=== PATIENT | male | born 1970 | race Caucasian/White ===

== ENCOUNTER 2025-02-10 13:20 | Emergency (ER) | payer OTHER, SELFPAY ==
--- NOTE | ~2025-02-10 | XR_ITS ---
EXAMINATION: XR ankle RT min 3V DATE: 02/10/2025 15:03 INDICATION: Right ankle pain post injury TECHNIQUE: Anteroposterior, oblique, mortise, and lateral views of the right ankle were obtained. COMPARISON: None. FINDINGS: Bone alignment is normal. No fracture. Joint spaces are normal. Small Achilles calcaneal spur. Soft t issues are unremarkable with no evident ankle joint effusion. IMPRESSION: 1. Small Achilles calcaneal spur. No other osseous abnormality. Reviewed, dictated and finalized at location B.
[2025-02-10 13:33] VITALS: BP 217/107; PULSE 95; RESP 16; TEMP 36.3; O2SAT 96
--- NOTE | 2025-02-10 14:24 | ED.LOWEXIN ---
HPI - Extremity Injury (Lower) General Chief Complaint: Extremity Injury, Lower Stated Complaint: rolled right ankle Time Seen by Provider: 02/10/25 14:24 Source: patient, RN notes reviewed and old records reviewed Mode of arrival: ambulatory Limitations: no limitations History of Present Illness HPI Narrative: 54-year-old male presents to the [facility] with pain, swelling after rolling his ankle yesterday. Pain to the right ankle, lateral and anterior. No treatment prior to arrive Onset (ago): day(s) (1) Related Data Home Medications ?Medication ?Instructions ?Recorded ?Confirmed ?Last Taken ?Type No Home Medications 02/10/25 02/10/25 Unknown History Allergies Allergy/AdvReac Type Severity Reaction Status Date / Time No Known Allergies Allergy Verified 02/10/25 13:31 Review of Systems Review of Systems: All systems reviewed & are unremarkable except as noted in HPI and below Constitutional: Constitutional: Reports no additional constitutional complaints ENT: Reports system reviewed and no additional complaints, except as documented Cardiovascular: Cardiovascular: Reports no additional cardiovascular complaints, Denies chest pain and Denies dyspnea Respiratory: Respiratory: Reports no additional respiratory complaints, Denies chest congestion, Denies cough and Denies dyspnea Musculoskeletal: Musculoskeletal: Reports as per HPI, Reports arthralgias and Reports joint swelling Integumentary/Breasts: Skin/Breast: Reports system reviewed and no additional complaints, except as docu PMFSH Comments At the time of my signature, I reviewed and agree with the nursing past medical, surgical, social, and family history. There is no relevant family history pertinent to the patient complaint. Exam Const: General: cooperative, healthy appearing, comfortable, no acute distress, well developed, alert and well nourished Nutritional Appearance: well nourished Orientation/consciousness: patient oriented x3 Limitations: no limitations HENMT: Head: normal to inspection Eyes: General: appearance normal, both eyes and all related structures Alignment and Position: alignment normal Neck: Neck: normal visual inspection, full ROM, no lymphadenopathy and no meningeal signs Chest: Chest palpation & inspection: normal inspection of the chest Resp: Effort & Inspection: normal respiratory effort and able to speak in complete sentences Auscultation: clear to auscultation bilaterally, no crackles, no rales, no rhonchi and no wheezes Cardio: Rate: regular rate Skin: General skin exam: normal color and no rashes or lesions noted Neuro: General: patient oriented x3, gait normal, moves all extremities and no meningeal signs Cognition (Neuro): normal cognition Speech: normal speech Gait exam (Neuro): Normal gait present Extrem: General: normal to inspection, full ROM, capillary refill normal and normal gait Right lower extremity: ankle Details: tenderness, swelling and normal ROM; no unusual warmth, no abrasions, no lacerations and no ecchymosis Psych: Appearance: grossly normal and well kempt Mental Status: mental status grossly normal Speech and movement: Normal speech and movement present and Clear speech present Affect: normal affect Attitude: cooperative Course Course Level of Care: Express Care Visit Vital Signs Vital signs: Vital Signs Temperature 97.4 F L 02/10/25 13:33 Pulse Rate 95 02/10/25 13:33 Respiratory Rate 16 02/10/25 13:33 Blood Pressure 217/107 H 02/10/25 13:33 Pulse Oximetry 96 02/10/25 13:33 Oxygen Delivery Room Air 02/10/25 13:33 Temperature 97.4 F L 02/10/25 13:33 Pulse Rate 95 02/10/25 13:33 Respiratory Rate 16 02/10/25 13:33 Blood Pressure 190/100 H 02/10/25 14:36 Pulse Oximetry 96 02/10/25 13:33 Oxygen Delivery Room Air 02/10/25 13:33 Reviewed MDM - Extremity Injury (Lower) MDM Narrative Medical decision making narrative: patient sitting comfortably in exam room. Nontoxic, vitals stable. Patient in no acute distress. Patient presents for right ankle pain, x-rays negative. Also discussed with patient that his blood pressure is extremely elevated, discussed transfer the ER for evaluation. Patient reports that he does have an appointment with a primary care that his made. Repeated a manual blood pressure, 190/100. Discussed with patient signs and symptoms of elevated blood pressure. Patient is denying any headaches, blurry vision, change in vision. Denies any chest pain or shortness of breath at this time. Discussed the risks of untreated blood pressure with this patient. Discharge instructions reviewed with patient, as well as provided in writing per nursing staff. The instructions also include specific and strict return/GO TO THE ER as well as f/u information. All questions have been answered, and the patient deny any further questions with discharge and discharge plan. Some parts of this dictation were generated by voice recognition software and may contain typographical and/or grammatical inaccuracies. Differential Diagnosis Differential diagnosis: Likely ankle sprain and strain and ankle fracture Imaging Data Radiologist's impression: EXAMINATION: XR ankle RT min 3V DATE: 02/10/2025 15:03 INDICATION: Right ankle pain post injury TECHNIQUE: Anteroposterior, oblique, mortise, and lateral views of the right ankle were obtained. COMPARISON: None. FINDINGS: Bone alignment is normal. No fracture. Joint spaces are normal. Small Achilles calcaneal spur. Soft tissues are unremarkable with no evident ankle joint effusion. IMPRESSION: 1. Small Achilles calcaneal spur. No other osseous abnormality. Critical Care Time Critical Care Time Critical Care Time: No Discharge Plan Discharge Clinical Impression: Ankle sprain and strain Patient Disposition: Home, Self-Care Condition: Stable Instructions: Antibiotic Form, Ankle Sprain (ED), Hypertension (ED) Additional Instructions: today your 1st blood pressure was 217/107. Your 2nd blood pressure reading manually was 190/100. please follow-up with your primary care provider for further evaluation, testing and treatment. untreated high blood pressure can lead to some serious health issues such as strokes, heart attack, kidney failure, Erectile dysfunction Your Xray did not show a fracture. Wear good supportive shoes at all times. Ice should be applied to help reduce swelling. It can be used for 20 to 30 minutes, every 2-3 hours while awake. Do not apply ice directly to your skin. ankle braces or brennon-wraps will help support your injured ankle. You can alternate ibuprofen 600mg and Tylenol 650mg every 4 hours as needed for pain Please schedule a follow-up visit with your personal physician for further evaluation and treatment within 2 weeks especially if symptoms persist. For new or worsening symptoms go directly to the emergency room Patient Language: Tajik Prescriptions: No Action No Home Medications Follow-up/Referrals: Harms,Carlos Alberto Medrano M.D. [Primary Care Provider] - [facility] pressure [facility] ) Time of Disposition: 15:11
--- OUTSIDE RECORDS SUMMARY | 2025-02-10 14:35 | XMS_ITS | Referral Summary ---
Author Organization [facility] Address [address] [place] [address] Care Team Providers Care Central Service Tech Name Role Phone Can Aponte MD Primary Care Provider [phone] Allergies No known active allergies Medications pantoprazole DR (PROTONIX) 40 mg EC tabletIndication s:Treatment of Non-Bleeding Gastric Disorder Take 1 tablet (40 mg total) by mouth daily 90 tablet 1 08/16/2021 Active lisinopriL (PRINIVIL,ZESTRI L) 20 mg tablet Take 1 tablet (20 mg total) by mouth daily 90 tablet 1 08/16/2021 Active Active Problems Problem Noted Date Diagnosed Date Hypertension, essential 08/16/2021 Assessment & Plan (11/02/2021 5:45 PM TELECOMMUNICATIONS SWITCH TECHNICIAN): Not well controlled, has not been on medications for multiple years Based upon elevation, will start lisinopril 20 mg daily Actinic keratosis of left cheek 08/16/2021 Assessment & Plan (11/02/2021 5:46 PM TELECOMMUNICATIONS SWITCH TECHNICIAN): Referral to dermatology for further evaluation treatment Gastritis 08/16/2021 Assessment & Plan (11/02/2021 5:46 PM TELECOMMUNICATIONS SWITCH TECHNICIAN): Not well controlled, continues to have significant abdominal pain, worsening over last 2 weeks Burning sensation Will give trial of Protonix 40 mg daily, evaluate for response to therapy Immunizations Immunization Administration Dates Next Due Influenza, Unspecified 08/16/2021(Deferr ed: Patient Refused),11/13/2020(Deferred: Patient Refused) Social History Tobacco Use Types Packs/Day Years Used Date Smoking Tobacco: Never Smokeless Tobacco: Never Alcohol Use Standard Drinks/Week Comments Yes 2 (1 standard drink = 0.6 oz pur e alcohol) AUDIT-C Answer Date Recorded Q1: How often do you have a drink containing alcohol? 4 or more times a week 08/16/2021 Q2: How many drinks containi ng alcohol do you have on a typical day when you are drinking? 1 or 2 Q3: How often do you have si x or more drinks on one occasion? Weekly 08/16/2021 PHQ-2 Answer Date Recorded PHQ-2 Total Score (If total score is 3 or more points, staff should administer the PHQ-9) 0 08/16/2021 Sex and Gender Information Value Date Recorded Sex Assigned at Not on file Legal Sex Male 11:24 AM TELECOMMUNICATIONS SWITCH TECHNICIAN Gender Identity Not on file Sexual Orientation Not on file Last Filed Vital Signs Vital Sign Reading Time Taken Comments Blood Pressure 150/100 08/16/2021 1:36 PM CDT Pulse 97 08/16/2021 1:36 PM CDT Temperature 36.8 C (98.2 F) 08/16/2021 1:36 PM CDT Respiratory Rate 18 05/08/2017 2:19 PM CDT Oxygen Saturation 97% 08/16/2021 1:36 PM CDT Inhaled Oxygen Concentration - - Weight 105.5 kg (232 lb 8 oz) 08/16/2021 1:36 PM CDT Height 175.3 cm (5' 9 ) 08/16/2021 1:36 PM CDT Body Mass Index 34.33 08/16/2021 1:36 PM CDT Plan of Treatment Not on file Procedures Procedure Name Priority Date/Time Associated Diagnosis Comments STOOL DNA COLOGUARD Routine 08/31/2021 5:35 PM CDT Colon cancer screening from Last 3 Months or Most Recently Relevant to Health Maintenance Results * Stool DNA - Cologuard (08/31/2021 5:35 PM CDT) Stool DNA - Cologuard Negative Negative [facility] (CLIA #:[id number]) Comment: NEGATIVE TEST RESULT. A negative Cologuard result indicates a low likelihood that a colorectal cancer (CRC) or advanced adenoma (adenomatous polyps with more advanced pre-malignant features) is present. The chance that a person with a negative Cologuard test has a colorectal cancer is less than 1 in 1500 (negative predictive value >99.9%) or has an advanced adenoma is less than 5.3% (negative predictive value 94.7%). These data are based on a prospective cross-sectional study of 10,000 individuals at average risk for colorectal cancer who were screened with both Cologuard and colonoscopy. (Alaina Brannon. et al, N Engl J Med 2014;370(14):4469-7483) The normal value (reference range) for this assay is negative. COLOGUARD RE-SCREENING RECOMMENDATION: Periodic colorectal cancer screening is an important part of preventive healthcare for asymptomatic individuals at average risk for colorectal cancer. Following a negative Cologuard result, the [place] Cancer Society and U.S. Multi-Society Task Force screening guidelines recommend a Cologuard re-screening interval of 3 years. References: [place] [employer] Guideline for Colorectal Cancer Screening: https://www.cancer.org/cancer/pewkt-fmtydl-bjayhq/nlxngowjw-buoxbqxvm-dokrxbm/ac s-rec ommendations.html.; Taye CORRAL, Mary Carmen CHILDRESS, Antonino ThaoK, Colorectal Cancer Screening: Recommendations for Physicians and Patients from the U.S. Multi-Society Task Force on Colorectal Cancer Screening , Am J Gastroenterology 2017; 112:5042-9697. TEST DESCRIPTION: Composite algorithmic analysis of stool DNA-biomarkers with hemoglobin immunoassay. Quantitative values of individual biomarkers are not reportable and are not associated with individual biomarker result reference ranges. Cologuard is intended for colorectal cancer screening of adults of either sex, 45 years or older, who are at average-risk for colorectal cancer (CRC). Cologuard has been approved for use by the U.S. FDA. The performance of Cologuard was established in a cross sectional study of average-risk adults aged 50-84. Cologuard performance in patients ages 45 to 49 years was estimated by sub-group analysis of near-age groups. Colonoscopies performed for a positive result may find as the most clinically significant lesion: colorectal cancer [4.0%], advanced adenoma (including sessile serrated polyps greater than or equal to 1cm diameter) [20%] or non- advanced adenoma [31%]; or no colorectal neoplasia [45%]. These estimates are derived from a prospective cross-sectional screening study of 10,000 individuals at average risk for colorectal cancer who were screened with both Cologuard and colonoscopy. (Alaina Brannon. et al, N Engl J Med 2014;370(14):7895-1725.) Cologuard may produce a false negative or false positive result (no colorectal cancer or precancerous polyp present at colonoscopy follow up). A negative Cologuard test result does not guarantee the absence of CRC or advanced adenoma (pre-cancer). The current Cologuard screening interval is every 3 years. ([place] [employer] Society and U.S. Multi-Society Task Force). Cologuard performance data in a 10,000 patient pivotal study using colonoscopy as the reference method can be accessed at the following location: www.[employer]/results. Additional description of the Cologuard test process, warnings and precautions can be found at www.[employer].com. Stool 08/31/2021 5:35 PM CDT 09/02/2021 9:32 PM CDT us Can Aponte MD LAB BODY FLUIDS AND STOOL S ORDERABLES Final Result [facility] (CLIA #:[id number]) [place] [place] [address] from Last 3 Months or Most Recently Relevant to Health Maintenance Insurance [facility] CHOICE PLUS [facility] HMO/PPO Address: [address] [address] [place] [address] [facility] OPEN ACCESS Care Teams Central Service Tech Relationship Specialty Start Date End Date Can Aponte MD [address] [place] [address] PCP - General Family Medicine 08/16/21
--- OUTSIDE RECORDS SUMMARY | 2025-02-10 14:35 | XMS_ITS | Clinical Summary ---
Author Organization [facility] [address] [facility] Address [address] [place] [address] Care Team Providers Care Lead Setter Name Role Phone Can Aponte MD Primary Care Provider [phone] Allergies No known active allergies Medications pantoprazole [...] 08/16/2021 Assessment & Plan (11/02/2021 5:45 PM POLE TESTER): Not well controlled, has not been on medications for multiple years Based upon elevation, will start lisinopril 20 mg daily Actinic keratosis of left cheek 08/16/2021 Assessment & Plan (11/02/2021 5:46 PM POLE TESTER): Referral to dermatology for further evaluation treatment Gastritis 08/16/2021 Assessment & Plan (11/02/2021 5:46 PM POLE TESTER): Not well controlled, continues to have significant abdominal pain, worsening over last 2 weeks Burning sensation Will give trial of Protonix 40 mg daily, evaluate for response to therapy Immunizations Immunization Administration Dates Next Due Influenza, Unspecified 08/16/2021(Deferr ed: Patient Refused),11/13/2020(Deferred: Patient Refused) Family History Medical History Relation Name Comments Hypertension Brother 1 melissa Hypertension Father derrick Hypertension Other Family history of Hypertension; Relation Name Status Comments Brother 1 melissa Alive Brother 2 ronald Alive Father derrick Alive Mother jason Alive Other Social History Tobacco Use Types Packs/Day Years [...] on file Legal Sex Male 11:24 AM POLE TESTER Gender Identity Not on file Sexual Orientation Not on file Obstetrics History Last Filed Vital Signs Vital Sign Reading [...] 08/16/2021 1:36 PM CDT Plan of Treatment Health Maintenance Due Date Last Done Comments Hepatitis C Screening 1972 Prostate Cancer Screening-PSA 1972 DTaP/Tdap/Td Vaccine (1 - Tdap) 1983 Hepatitis B Screening 1990 Regular Well Visit/Exam 18-64 1990 Depression Screening 08/16/2022 08/16/2021, 05/08/2017 Zoster Vaccine (1 of 2) 2022 Colon Cancer Screening-DNA Stool 08/31/2024 08/31/2021 Influenza Vaccine Discontinued Pneumococcal vaccine <65 Aged Out No longer eligible based on patient's age to complete this topic Procedures Procedure Name Priority Date/Time Associated Diagnosis Comments STOOL DNA COLOGUARD Routine 08/31/2021 5:35 PM CDT Colon cancer screening from Last 3 Months or Most Recently Relevant to Health Maintenance Results * Stool DNA - Cologuard (08/31/2021 5:35 PM CDT) Stool DNA - Cologuard Negative Negative [facility] (CLIA #:[id number]) Comment: NEGATIVE TEST RESULT. A negative Cologuard [...] screened with both Cologuard and colonoscopy. (Alaina Luna et al, N Engl J Med 2014;370(14):9148-2715) The normal value (reference range) for this assay is negative. COLOGUARD RE-SCREENING RECOMMENDATION: Periodic colorectal cancer screening is an important part of preventive healthcare for asymptomatic individuals at average risk for colorectal cancer. Following a negative Cologuard result, the [place] Cancer Society and U.S. Multi-Society Task Force screening guidelines recommend a Cologuard re-screening interval of 3 years. References: [place] [employer] Guideline for Colorectal Cancer Screening: https://www.cancer.org/cancer/dddio-uizbxo-vfuvnq/ajigocnov-ninxfcrxp-nozmmsa/ac s-rec ommendations.html.; Taye CORRAL, Mary Carmen CHILDRESS, Antonino SANDOVAL, Colorectal Cancer Screening: Recommendations for Physicians and Patients from the U.S. Multi-Society Task Force on Colorectal Cancer Screening , Am J Gastroenterology 2017; 112:5623-3460. TEST DESCRIPTION: Composite algorithmic analysis of stool [...] Brannon. et al, N Engl J Med 2014;370(14):0236-8921.) Cologuard may produce a false negative or false positive result (no colorectal cancer or precancerous polyp present at colonoscopy follow up). A negative Cologuard test result does not guarantee the absence of CRC or advanced adenoma (pre-cancer). The current Cologuard screening interval is every 3 years. ([place] Cancer Society and U.S. Multi-Society Task Force). Cologuard performance data in a 10,000 patient pivotal study using colonoscopy as the reference method can be accessed at the following location: www.[employer]/results. Additional description of the Cologuard test process, warnings and precautions can be found at www.[employer]. Stool 08/31/2021 5:35 PM CDT 09/02/2021 9:32 PM CDT us Can Aponte MD LAB BODY FLUIDS AND STOOL S ORDERABLES Final Result [facility] (CLIA #:[id number]) [place] [address] [place] [address] from Last 3 Months or Most Recently Relevant to Health [place] [address] [facility] [place] [address] [employer] OPEN ACCESS Care Teams Lead Setter Relationship Specialty Start Date End Date Can Aponte MD [address] [place] [address] PCP - General Family Medicine 08/16/21
--- OUTSIDE RECORDS SUMMARY | 2025-02-10 14:35 | XMS_ITS | Clinical Summary ---
Author Organization [facility] Address [address] [place] [id number] Care Team Providers Care Production Line Operator Name Role Phone Unavailable Primary Care Provider Unavailabl e Social History Tobacco Use Types Packs/Day Years Used Date Smoking Tobacco: Never Assessed Sex and Gender Information Value Date Recorded Sex Assigned at Not on file Legal Sex Male 4:32 PM CDT Gender Identity Not on file Sexual Orientation Not on file Plan of Treatment Health Maintenance Due Date Last Done Comments Colorectal Cancer Screening Colonoscopy (10 Years) 1972 Annual Physical 1975 Hepatitis C 1990 DTaP, Tdap and Td Vaccines ( 1 - Tdap) 1991 Hepatitis B Vaccines (1 of 3 - 19+ 3-dose series) 1991 Zoster Vaccines (1 of 2) 2022 COVID-19 Vaccine ( - 2023-2 5 season) 2024 Meningococcal B Vaccine Aged Out No l onger eligible based on patient's age to complete this topic Meningococcal Vaccine Aged Out No michelle srinivasan eligible based on patient's age to complete this topic Pneumococcal Vaccine: Pediat rics (0 to 5 Years) and At-Risk Patients (6 to 64 Years) Aged Out No longer eligible b ased on patient's age to complete this topic RSV Immunizations Under 20 Months Aged Out No longer eligible based on patient's age to complete this topic
[2025-02-10 14:36] VITALS: BP 190/100
== END 2025-02-10 15:15 | disposition home or self-care (01) ==
PROVIDERS: Emergency Provider Nurse Practitioner; PCP Family Medicine
DX: S93.401A Sprain of unspecified ligament of right ankle, initial encounter (principal); S96.911A Strain of unspecified muscle and tendon at ankle and foot level, right foot, initial encounter; X50.9XXA Other and unspecified overexertion or strenuous movements or postures, initial encounter; I10 Essential (primary) hypertension
CPT/HCPCS: 73610; 99203; G0463